=== PATIENT | female | born 1945 | race Caucasian/White ===

== ENCOUNTER → 2017-02-16 | Outpatient (CLI) | payer MEDICARE, BC ==
[~2017-02-16] MED LIST: BACTRIM DS TABL1 TA1 PO; BAYER ASPIRIN325 M1 PO; DYAZIDE 37.5/251 CAP PO; FISH OIL 1,001000 MG PO; METOPROLOL SUCC25 MG PO; OMEGA 3-6-9 11200 MG PO; PAXIL10 MG PO; PRAVASTATIN SOD40 MG PO; PYRIDIUM100 MG PO; VITAMIN B COMPL1 TA3 PO; VITAMIN B-1000 MCG/1 IJ; [UNRECOGNIZED DRUG - OTHER] PO; [UNRECOGNIZED DRUG - OTHER] PO
--- NOTE | ~2017-02-16 | MY30 ---
[facility] A Service of [facility] RADIOLOGY TEXT RESULTS PATIENT: MARIBEL VITALE LOCATION: [facility] : 41 UNIT #: [id number] AGE: [address]: Tyra Garcia MD SEX: F ORDER DR: [id number] [address] [id number] [id number] O MR#: [id number] Acc #: [id number] NAME: MARIBEL VITALE : 1945 SEX: F STUDY DATE/TIME: 02/16/2017 15:05 UNIT: [facility] ROOM: STUDY DESCRIPTION: MY SCREEN ISAIAH BILAT DIGITAL Attending Physician: Tyra Garcia M.D. Referring Physician: Tyra Garcia M.D. Ordering Physician: Tyra Garcia M.D. Primary Care Physician: Tyra Garcia M.D. MEDICAL IMAGING REPORT This report is preliminary unless electronic signature is present. EXAM Bilateral digital screening mammogram with CAD, 02/16/2017. HISTORY No personal or family history of breast cancer. No current complaints. COMPARISON Bilateral screening mammogram 12/08/2015, 11/30/2014 and 09/01/2013 performed at [facility]. FINDINGS CC and MLO views were obtained of each breast, utilizing digital technique, and reviewed with an FDA-approved CAD device. Scattered fibroglandular densities are present bilaterally. 2 bagd-pekg-4-mm circumscribed nodules within the upper outer right breast are consistent with benign lymph nodes and are unchanged. Subareolar nodular density within the left breast in the upper inner quadrant is unchanged from 2015, also in keeping with a benign finding. No new or suspicious nodule, architectural distortion, or cluster of microcalcifications is seen. IMPRESSION Benign finding. Routine bilateral screening mammogram is recommended in 1 year. Patients over the age of 40 are entered into a reminder system with target due date for the next mammogram. A result letter will also be sent to the patient. BIRADS: 2 Benign finding. [facility] A Service [facility] RADIOLOGY TEXT RESULTS PATIENT: MARIBEL VITALE LOCATION: [facility] : 41 UNIT #: [id number] AGE: [address]: Tyra Garcia MD SEX: F ORDER DR: Dictated by... Neeta Guy M.D. THIS IS AN ELECTRONICALLY VERIFIED REPORT Neeta Guy M.D. at 02/20/2017 5:03 PM JUAN/segundo TD: 02/20/2017 16:28 JOB #: [id number] MEDICAL IMAGING REPORT Page 1 of 1
== END | disposition home or self-care (01) ==
LOC: SMAM 14:21
DX: Z12.31 Encounter for screening mammogram for malignant neoplasm of breast (principal)
CPT/HCPCS: G0202